=== PATIENT | male | born 1970 | race Hispanic/Latino ===

== ENCOUNTER 2021-04-01 08:19 | Emergency (ER) | payer SELFPAY ==
[2021-04-01 08:47] LABS: #Basophils 0.1 thou/uL (0.0-0.2); #Eosinphils 0.1 thou/uL (0.0-0.7); #Lymphocytes 2.9 thou/uL (1.20-3.40); #Monocytes 0.6 thou/uL (0.11-0.59); #Neutrophils 2.8 thou/uL (1.40-6.50); %Basophils 1.5 % (0.0-1.0); %Lymphocytes 44.8 % (21.0-51.0); %Monocytes 8.8 % (0.0-10.0); %Neutrophils 43.8 % (42.0-75.0); Hemoglobin 15.7 g/dL (14.0-18.0); Mean Corpuscular HGB CONC 34.3 g/dL (32.0-36.0); Mean Corpuscular Hemoglobin 31.9 pg (27.0-31.0); Mean Corpuscular Volume 92.9 fL (78.0-98.0); Mean Platelet Volume 9.2 fL (7.4-10.4); Platelet Count 196 thou/uL (130-400); RBC Distribution Width 11.1 % (11.5-14.5); Red Blood Cell (RBC) Count 4.93 mill/uL (4.70-6.10); White Blood Cell (WBC) Count 6.4 thou/uL (4.8-10.8)
[2021-04-01 08:59] LABS: ALT (SGPT) 34 U/L (8-55); AST (SGOT) 28 U/L (5-34); Albumin 4.5 g/dL (3.5-5.0); Alkaline Phosphatase 54 U/L (40-110); Anion Gap 13 mmol/L (10-20); BUN (Urea Nitrogen) 12 mg/dL (8.9-20.6); Bilirubin, Total 0.9 mg/dL (0.2-1.2); Calc. Creatinine Clearance 0 mL/min (70-130); Carbon Dioxide 25 mmol/L (22-29); Chloride 106 mmol/L (98-107); Glucose 107 mg/dL (70-105); Potassium 4.4 mmol/L (3.5-5.1); Protein, Total 7.5 g/dL (6.0-8.3); Sodium 140 mmol/L (136-145)
[2021-04-01 09:26] LABS: INR-International Normal Ratio 1.3; PTT 30.9 sec (22.9-36.1); Prothrombin Time 16.3 sec (12.0-14.7)
[2021-04-01] MEDS ORDERED: Aspirin Chewable 81 MG TAB ONE (09:28)
[2021-04-01 09:53] LABS: Acetaminophen Less than 6.0 mcg/mL (10.0-30.0); Alcohol Less than 10 mg/dL (Less than 10); CK (CPK) 107 U/L (30-200); Salicylate Less than 8.0 mg/dL (15.0-30.0)
[2021-04-01] MEDS ORDERED: Enoxaparin Sodium 100 MG/ML SYRINGE ONE (10:08)
[2021-04-01 10:12] LABS: CKMB 0.8 ng/mL (0-6.6)
[2021-04-01 10:46] LABS: Amphetamine Not Detected (NotDetected); Barbiturates Screen Not Detected (NotDetected); Benzodiazepine Screen Not Detected (NotDetected); Cocaine Metabolite Screen Not Detected (NotDetected); Medtox Control Line Valid? VALID (VALID); Methadone Not Detected (NotDetected); Methamphetamine Not Detected (NotDetected); Opiate Screen Not Detected (NotDetected); Oxycodone Screen Not Detected (NotDetected); Phencyclidine (PCP) Not Detected (NotDetected); THC/Cannabinoid Screen Not Detected (NotDetected); Tricyclic Screen Not Detected (NotDetected)
[2021-04-02 00:02] LABS: SARS-CoV-2 PCR by NAA Not Detected (NotDetected)
== END 2021-04-01 12:04 | disposition short-term general hospital (02) ==
LOC: BURERS 08:19
DX: R51.9 Headache, unspecified (principal); R20.0 Anesthesia of skin; R53.1 Weakness; Z20.822 Contact with and (suspected) exposure to COVID-19; Z86.73 Personal history of transient ischemic attack (TIA), and cerebral infarction without residual deficits; Z79.899 Other long term (current) drug therapy
CPT/HCPCS: 36416; 70450; 71045; 80053; 80306; 80307; 82550; 82553; 84484; 85025; 85610; 85730; 93005; 94760; 96372; J1650; U0003; U0005

== ENCOUNTER 2021-04-09 16:34 | Emergency (ER) | payer SELFPAY ==
[2021-04-09 17:16] LABS: #Basophils 0.1 thou/uL (0.0-0.2); #Lymphocytes 1.7 thou/uL (1.20-3.40); #Monocytes 0.5 thou/uL (0.11-0.59); #Neutrophils 6.7 thou/uL (1.40-6.50); %Eosinophils 0.2 % (0.0-10.0); %Lymphocytes 18.6 % (21.0-51.0); %Monocytes 5.6 % (0.0-10.0); %Neutrophils 74.6 % (42.0-75.0); Hemoglobin 14.5 g/dL (14.0-18.0); Mean Corpuscular HGB CONC 34.6 g/dL (32.0-36.0); Mean Corpuscular Hemoglobin 32.3 pg (27.0-31.0); Mean Corpuscular Volume 93.5 fL (78.0-98.0); Mean Platelet Volume 9.2 fL (7.4-10.4); Platelet Count 203 thou/uL (130-400); RBC Distribution Width 11.2 % (11.5-14.5); Red Blood Cell (RBC) Count 4.49 mill/uL (4.70-6.10); White Blood Cell (WBC) Count 8.9 thou/uL (4.8-10.8)
[2021-04-09 17:20] LABS: INR-International Normal Ratio 2.5; Prothrombin Time 27.6 sec (12.0-14.7)
[2021-04-09 17:25] LABS: ALT (SGPT) 98 U/L (8-55); AST (SGOT) 47 U/L (5-34); Albumin 4.2 g/dL (3.5-5.0); Alkaline Phosphatase 46 U/L (40-110); Anion Gap 14 mmol/L (10-20); BUN (Urea Nitrogen) 14 mg/dL (8.9-20.6); Bilirubin, Total 0.5 mg/dL (0.2-1.2); Calc. Creatinine Clearance 0 mL/min (70-130); Calcium 8.7 mg/dL (7.8-10.44); Carbon Dioxide 23 mmol/L (22-29); Chloride 104 mmol/L (98-107); Globulin 3.1 g/dL (2.4-3.5); Glucose 110 mg/dL (70-105); Potassium 3.9 mmol/L (3.5-5.1); Protein, Total 7.3 g/dL (6.0-8.3); Sodium 137 mmol/L (136-145)
[2021-04-09] MEDS ORDERED: Ondansetron PF 4 MG/2 ML Vial ONE (17:36)
[2021-04-09] MEDS ORDERED: Fentanyl 100 MCG/2 ML VIAL ONE (17:36)
[2021-04-09] MEDS ORDERED: Human Prothrombin Complx(PCC) 500 UNIT VIAL ONE (17:47)
[2021-04-10 18:35] LABS: SARS-CoV-2 PCR by NAA Not Detected (NotDetected)
== END 2021-04-09 17:57 ==
LOC: BURERS 16:34
DX: I62.00 Nontraumatic subdural hemorrhage, unspecified (principal); I44.0 Atrioventricular block, first degree; R00.1 Bradycardia, unspecified; Z20.822 Contact with and (suspected) exposure to COVID-19; Z86.73 Personal history of transient ischemic attack (TIA), and cerebral infarction without residual deficits; Z79.899 Other long term (current) drug therapy
CPT/HCPCS: 70450; 80053; 85025; 85610; 85730; 87804; 93005; 94760; 96374; 96375; J2405; J3010; J7168; U0003; U0005

== ENCOUNTER 2022-02-15 10:09 | Outpatient (CLI) | payer OTHER ==
[2022-02-15 11:06] LABS: INR-International Normal Ratio 3.3; Prothrombin Time 35.3 sec (12.0-14.7)
== END 2022-02-15 10:10 | disposition home or self-care (01) ==
LOC: BURLAB 10:09
PROVIDERS: ATTEND Family Medicine
DX: Z51.81 Encounter for therapeutic drug level monitoring (principal); I38 Endocarditis, valve unspecified; Z79.01 Long term (current) use of anticoagulants
CPT/HCPCS: 36415; 85610

== ENCOUNTER 2022-03-23 15:19 | Outpatient (CLI) | payer OTHER ==
[2022-03-23 15:54] LABS: Prothrombin Time 32.2 sec (12.0-14.7)
== END 2022-03-23 15:20 | disposition home or self-care (01) ==
LOC: BURLAB 15:19
PROVIDERS: ATTEND Family Medicine
DX: I49.9 Cardiac arrhythmia, unspecified (principal)
CPT/HCPCS: 36415; 85610

== ENCOUNTER 2022-04-28 11:47 | Outpatient (CLI) | payer OTHER ==
[2022-04-28 12:30] LABS: INR-International Normal Ratio 2.2; Prothrombin Time 25.6 sec (12.0-14.7)
== END 2022-04-28 11:48 | disposition home or self-care (01) ==
LOC: BURLAB 11:47
PROVIDERS: ATTEND Family Medicine
DX: Z48.812 Encounter for surgical aftercare following surgery on the circulatory system (principal); Z95.2 Presence of prosthetic heart valve
CPT/HCPCS: 36415; 85610

== ENCOUNTER 2022-06-19 17:35 | Outpatient (CLI) | payer OTHER ==
[2022-06-19 18:01] LABS: INR-International Normal Ratio 1.8; Prothrombin Time 21.9 sec (12.0-14.7)
== END 2022-06-19 17:36 | disposition home or self-care (01) ==
LOC: BURLAB 17:35
PROVIDERS: ATTEND Family Medicine
DX: I38 Endocarditis, valve unspecified (principal)
CPT/HCPCS: 36415; 85610

== ENCOUNTER 2022-06-29 12:08 | Outpatient (CLI) | payer OTHER ==
[2022-06-29 12:42] LABS: INR-International Normal Ratio 2.7; Prothrombin Time 29.7 sec (12.0-14.7)
== END 2022-06-29 12:09 | disposition home or self-care (01) ==
LOC: BURLAB 12:08
PROVIDERS: ATTEND Family Medicine
DX: Z48.812 Encounter for surgical aftercare following surgery on the circulatory system (principal); Z95.2 Presence of prosthetic heart valve
CPT/HCPCS: 36415; 85610